=== PATIENT | female | born 1950 | race Caucasian/White ===

== ENCOUNTER 2017-09-04 12:10 | Inpatient (IN) | payer MEDICARE, OTHER ==
[~2017-09-04] VITALS: Ht 154.9 cm; Wt 80.4 kg
[2017-09-04] MEDS ORDERED: DAPS25TA2 PO (14:18)
[2017-09-04] MEDS ORDERED: DOXY100C2 PO (14:18)
--- NOTE | 2017-09-04 14:56 | ED Integumentary General ---
General Chief Complaint: Skin/Wound Problems Stated Complaint: SPIDER BITE AREA GETTING WORSE Nursing Triage Note: PT TO ED W/ C/O POSS SPIDER BITE TO LT AXILLA ONSET 2300 09/01/17. REDNESS NOTED TO AREA. DENIES ANY OTHER C/O Source: patient, spouse Exam Limitations: no limitations History of Present Illness Date Seen by Provider: Sep 04, 2017 Time Seen by Provider: 14:30 Initial Comments The patient presents to the ER by private conveyance with a chief complaint that 2 days ago she felt a sharp stinging bite-like sensation in her left axilla. She did not find the spider or bug that bit her but she had a small red pore that continue to grow throughout the day so that afternoon she went to see her primary care doctor and they looked at it and thought that it looked like cellulitis and her armpit. About 2 hours after the bite both of her feet began to turn red as well. She was started on doxycycline which she started taking that evening but threw up one dose yesterday morning. She's not having any nausea now but the redness had doubled in size so she went back to see her doctor who started her on dapsone. She did take a dose of the dapsone but after looking up the side effects she is concerned that it might cause her to become anemic. Yesterday she was also given a shot of what sounds like Rocephin. She is not having any fevers or chills or nausea presently but she is having significant pain and again the redness has doubled in size. The redness in her feet however has improved significantly. The wound is not draining anything presently. Allergies and Home Medications Allergies Coded Allergies: No Known Drug Allergies (Verified Allergy, Mild, 08/10/09) Patient Home Medication List Home Medication List Reviewed: Yes Constitutional: No chills, No diaphoresis EENTM: No ear discharge, No ear pain Respiratory: No cough, No short of breath Cardiovascular: No chest pain, No edema Gastrointestinal: No abdominal pain, No constipation, No diarrhea; nausea; No vomiting Genitourinary: No discharge, No dysuria Musculoskeletal: No back pain, No joint pain Skin: see HPI Past Aljtjrv-Vfibwl-Rmapgj Hx Patient Social History Alcohol Use: Denies Use Recreational Drug Use: No Smoking Status: Never a Smoker Recent Foreign Travel: No Contact w/Someone Who Travel: No Recent Infectious Disease Expo: No Past Medical History Surgeries: Yes (HEMORRHOIDECTOMY) Adenoidectomy, Tonsillectomy Respiratory: No Cardiac: Yes ("EXTRA BEAT" SINCE AGE 19) Neurological: No Genitourinary: No Gastrointestinal: No Musculoskeletal: No Endocrine: No HEENT: No Cancer: No Psychosocial: No Integumentary: No Physical Exam Vital Signs Vital Signs - First Documented 09/04/17 14:11 Temp 97.8 Pulse 87 Resp 18 B/P (MAP) 118/63 (81) Pulse Ox 97 O2 Delivery Room Air Capillary Refill : Less Than 3 Seconds General Appearance: WD/WN, no apparent distress HEENT: PERRL/EOMI, pharynx normal Neck: non-tender, full range of motion, supple, normal inspection Cardiovascular: normal peripheral pulses, regular rate, rhythm, no edema Respiratory: chest non-tender, lungs clear, normal breath sounds, no respiratory distress, no accessory muscle use Extremities: non-tender, normal inspection, no pedal edema, normal capillary refill Neurologic/Psychiatric: alert, normal mood/affect, oriented x 3, other ( anxious affect) Skin: other (she has an area of erythema approximately 15-20 cm diameter in her left axilla with lines drawn on it showing that it has steadily grown doubling about every day. She has a central palpable nodule area of fluctuance with a central pore that is white without any discharge. Very tender to palpation. The erythema is starting to spread to the left breast. Bilateral lower extremities are unremarkable.) Skin Problem Character: abscess, erythema Lymphatic: no adenopathy Procedures/Interventions I&D : Site: left axilla Blade Size: 11 I & D Procedure: betadine prep Progress Wound was thoroughly cleaned with chlorhexidine soap water and infiltrated with 6 cc of 2% lidocaine without epinephrine. When the patient was ascertained to be numb we use an 11 blade to make a cross cruz incision in her left axilla and explored the wound after obtaining a wound culture. No purulence was found but there were some tracks anteriorly. The wound was not packed and a light gauze dressing was placed over it catch the drainage. Progress/Results/Core Measures Results/Orders Lab Results Laboratory Tests Test 09/04/17 15:10 Range/Units White Blood Count 8.4 4.3-11.0 10^3/uL Red Blood Count 4.23 L 4.35-5.85 10^6/uL Hemoglobin 14.1 11.5-16.0 G/DL Hematocrit 38 35-52 % Mean Corpuscular Volume 90 80-99 FL Mean Corpuscular Hemoglobin 33 25-34 PG Mean Corpuscular Hemoglobin Concent 37 H 32-36 G/DL Red Cell Distribution Width 11.6 10.0-14.5 % Platelet Count 269 130-400 10^3/uL Mean Platelet Volume 8.7 7.4-10.4 FL Neutrophils (%) (Auto) 77 H 42-75 % Lymphocytes (%) (Auto) 13 12-44 % Monocytes (%) (Auto) 8 0-12 % Eosinophils (%) (Auto) 2 0-10 % Basophils (%) (Auto) 0 0-10 % Neutrophils # (Auto) 6.4 1.8-7.8 X 10^3 Lymphocytes # (Auto) 1.1 1.0-4.0 X 10^3 Monocytes # (Auto) 0.7 0.0-1.0 X 10^3 Eosinophils # (Auto) 0.2 0.0-0.3 10^3/uL Basophils # (Auto) 0.0 0.0-0.1 10^3/uL Sodium Level 136 135-145 MMOL/L Potassium Level 3.9 3.6-5.0 MMOL/L Chloride Level 104 98-107 MMOL/L Carbon Dioxide Level 21 21-32 MMOL/L Anion Gap 11 5-14 MMOL/L Blood Urea Nitrogen 13 7-18 MG/DL Creatinine 0.77 0.60-1.30 MG/DL Estimat Glomerular Filtration Rate > 60 BUN/Creatinine Ratio 17 Glucose Level 114 H 70-105 MG/DL Calcium Level 9.1 8.5-10.1 MG/DL Total Bilirubin 1.2 H 0.1-1.0 MG/DL Aspartate Amino Transf (AST/SGOT) 26 5-34 U/L Alanine Aminotransferase (ALT/SGPT) 28 0-55 U/L Alkaline Phosphatase 84 40-136 U/L Total Protein 7.7 6.4-8.2 GM/DL Albumin 4.5 3.2-4.5 GM/DL My Orders Orders - SHANNON VICENTE Cbc With Automated Diff (09/04/17 14:47) Comprehensive Metabolic Panel (09/04/17 14:47) Wound Culture (09/04/17 14:47) Vancomycin Injection (Vancomycin Injecti (09/04/17 15:00) Lidocaine 2% Injection 20 Ml (Xylocaine (09/04/17 15:00) Saline Lock/Iv-Start (09/04/17 14:47) Acetaminophen Tablet (Tylenol Tablet) (09/04/17 16:45) Medications Given in ED Current Medications Medications Dose Ordered Sig/Ezequiel Route Start Time Stop Time Status Last Admin Dose Admin Lidocaine HCl 20 ml ONCE ONCE INJ 09/04/17 15:00 09/04/17 15:01 DC 09/04/17 16:00 20 ML Vancomycin HCl 1000 mg/Sodium Chloride 250 ml @ 250 mls/hr ONCE ONCE IV 09/04/17 15:00 09/04/17 15:59 DC 09/04/17 16:24 250 MLS/HR Vital Signs/I&O 09/04/17 14:11 Temp 97.8 Pulse 87 Resp 18 B/P (MAP) 118/63 (81) Pulse Ox 97 O2 Delivery Room Air Blood Pressure Mean: 81 Progress Progress Note : Time: 14:56 Progress Note We have discussed doing incised and drained by lidocaine here in the ER versus with general surgery if she cannot tolerate the pain. We have also discussed the need for IV antibiotics. We will draw some labs and she is considering whether she wants to be in the hospital or not. Departure Communication (Admissions) Time/Spoke to Admitting Phy: 16:30 Dr. Culver; discussed case lab imaging findings and plan to treat for cellulitis with vancomycin and Unasyn. Impression Primary Impression: Abscess of axillary region Additional Impression: Cellulitis of axilla, left Disposition: 09 ADMITTED INPATIENT Condition: Stable Admissions Decision to Admit Reason: Admit from ER (General) Decision to Admit/Date: Sep 04, 2017 Time/Decision to Admit Time: 16:29 Departure-Patient Inst. Referrals: ALLYSSA MITCHELL MD, KATHLEEN M MD (PCP/Family) Primary Care Physician Copy Copies To 1: ALLYSSA MITCHELL MD, TITUS J Sep 04, 2017 14:56
[2017-09-04] MEDS ORDERED: LIDOCAINE 2% 20 ML (XYLOCAINE) VIAL INJ ONE (15:00)
[2017-09-04] MEDS ORDERED: VANCOMYCIN INJECTION 1,000 MG in NS (IVPB) 250 ML IV ONE (15:00)
[2017-09-04 15:22] LABS: BASOPHILS % (AUTO) 0 % (0-10); EOSINOPHILS # (AUTO) 0.2 10^3/uL (0.0-0.3); EOSINOPHILS % (AUTO) 2 % (0-10); HEMATOCRIT 38 % (35-52); HEMOGLOBIN 14.1 G/DL (11.5-16.0); LYMPHOCYTES # (AUTO) 1.1 X 10^3 (1.0-4.0); LYMPHOCYTES % (AUTO) 13 % (12-44); MEAN CORPUSCULAR HEMOGLOBIN 33 PG (25-34); MEAN CORPUSCULAR HGB CONC 37 G/DL (32-36); MEAN CORPUSCULAR VOLUME 90 FL (80-99); MEAN PLATELET VOLUME 8.7 FL (7.4-10.4); MONOCYTES # (AUTO) 0.7 X 10^3 (0.0-1.0); MONOCYTES % (AUTO) 8 % (0-12); NEUTROPHILS # (AUTO) 6.4 X 10^3 (1.8-7.8); NEUTROPHILS % (AUTO) 77 % (42-75); PLATELET COUNT 269 10^3/uL (130-400); RED BLOOD COUNT 4.23 10^6/uL (4.35-5.85); RED CELL DISTRIBUTION WIDTH 11.6 % (10.0-14.5); WHITE BLOOD COUNT 8.4 10^3/uL (4.3-11.0)
[2017-09-04 15:39] LABS: ALANINE AMINOTRANSFERASE 28 U/L (0-55); ALBUMIN 4.5 GM/DL (3.2-4.5); ALKALINE PHOSPHATASE 84 U/L (40-136); BILIRUBIN,TOTAL 1.2 MG/DL (0.1-1.0); BUN/CREATININE RATIO 17; CALCIUM 9.1 MG/DL (8.5-10.1); CARBON DIOXIDE 21 MMOL/L (21-32); CHLORIDE 104 MMOL/L (98-107); CREATININE SERUM 0.77 MG/DL (0.60-1.30); GFR ESTIMATED > 60; GLUCOSE 114 MG/DL (70-105); POTASSIUM 3.9 MMOL/L (3.6-5.0); SODIUM 136 MMOL/L (135-145); TOTAL PROTEIN 7.7 GM/DL (6.4-8.2)
[2017-09-04] MEDS ORDERED: ACETAMINOPHEN 500 MG TAB (TYLENOL) PO ONE (16:45)
[2017-09-04] MEDS ORDERED: ONDANSETRON 4 MG/2 ML (SDV) Z0FRAN IVP PRN (18:00)
[2017-09-04] MEDS ORDERED: IBUPROFEN 800 MG (MOTRIN) TAB PO PRN (18:00)
[2017-09-04] MEDS ORDERED: LORATADINE (CLARITIN) 10 MG TAB PO PRN (18:00)
[2017-09-04] MEDS ORDERED: ACETAMINOPHEN 500 MG TAB (TYLENOL) PO PRN (18:00)
[2017-09-04 20:00] VITALS: BP 121/58
[2017-09-04] MEDS: AMPICILLIN/SULBACTAM INJECTION 3 GM in NS (IVPB) 100 ML IV SCH (20:56)
[2017-09-05] VITALS (7 sets, daily range): BP systolic 95–139; BP diastolic 55–65
[2017-09-05] MEDS: AMPICILLIN/SULBACTAM INJECTION 3 GM in NS (IVPB) 100 ML IV SCH ×2 (02:32→09:05)
[2017-09-05 07:06] LABS: BASOPHILS % (AUTO) 0 % (0-10); EOSINOPHILS # (AUTO) 0.3 10^3/uL (0.0-0.3); EOSINOPHILS % (AUTO) 4 % (0-10); HEMATOCRIT 37 % (35-52); HEMOGLOBIN 12.7 G/DL (11.5-16.0); LYMPHOCYTES % (AUTO) 17 % (12-44); MEAN CORPUSCULAR HEMOGLOBIN 32 PG (25-34); MEAN CORPUSCULAR HGB CONC 35 G/DL (32-36); MEAN CORPUSCULAR VOLUME 91 FL (80-99); MEAN PLATELET VOLUME 9.2 FL (7.4-10.4); MONOCYTES # (AUTO) 0.7 X 10^3 (0.0-1.0); MONOCYTES % (AUTO) 11 % (0-12); NEUTROPHILS % (AUTO) 68 % (42-75); PLATELET COUNT 277 10^3/uL (130-400); RED BLOOD COUNT 4.03 10^6/uL (4.35-5.85); RED CELL DISTRIBUTION WIDTH 11.8 % (10.0-14.5)
[2017-09-05 07:23] LABS: BUN/CREATININE RATIO 16; CALCIUM 8.8 MG/DL (8.5-10.1); CARBON DIOXIDE 24 MMOL/L (21-32); CHLORIDE 107 MMOL/L (98-107); CREATININE SERUM 0.77 MG/DL (0.60-1.30); GFR ESTIMATED > 60; GLUCOSE 97 MG/DL (70-105); POTASSIUM 3.8 MMOL/L (3.6-5.0); SODIUM 141 MMOL/L (135-145)
[2017-09-05] MEDS ORDERED: CATHETER FLUSH 10 ML SYR IV PRN (09:00)
[2017-09-05] MEDS ORDERED: VANCOMYCIN 1500 MG/NS 500 ML IVPB IV NR ×2 (09:00)
[2017-09-05] MEDS: CATHETER FLUSH 10 ML SYR IV SCH ×2 (09:05→21:50)
--- NOTE | 2017-09-05 11:18 | History & Physical-Hospitalist ---
History of Present Illness HPI/Chief Complaint Mrs. Villar 66-year-old white female who was woken from sleep 3 nights ago with a stinging sensation below the left axilla. It had a sensation as though she had been bitten she her clothes off and was not able to fine any evidence for insect or spider but noted progressive erythema followed by the formation of a knot. It was initially itchy and then became tender. She went to her primary care provider initially her nurse practitioner and then seen by Dr. Nelson as well at which time doxycycline and dapsone were initiated. She had several doses of doxycycline but did vomit 1 dose up yesterday with no reported nausea today. She is noted progressive expanding areas of erythema and increased not worse symptoms began below the left axilla. The following morning she also noticed significant erythema of both feet but not reportedly hands that was not itchy. She denies chills fever or weakness. She's also had no night sweats. She's not aware of any known allergies to medications or insects. She reports no past history of known spider bites. In the emergency room she underwent incision there was no reported purulent drainage obtained there was a report of a sinus tract. Cultures were obtained. Currently she reports mild discomfort at the site of the incision and drainage only with no reported itching and reporting resolution of foot symptoms and erythema. Date Seen 09/05/17 Time Seen by Provider: 09:45 Attending Physician Minda Culver MD PCP Yecenia NELSON M.D. Referring Physician Date of Admission Sep 04, 2017 at 16:58 Home Medications & Allergies Home Medications Reviewed patient Home Medication Reconciliation performed by pharmacy medication reconciliations hvac refrigeration technician and/or nursing. Patients Allergies have been reviewed. Allergies Allergies Coded Allergies No Known Drug Allergies (Verified09/04/17) Past Emitjfc-Llwwlf-Unmpru Hx Past Med/Social Hx: Reviewed and Corrections made Patient Social History Alcohol Use: Denies Use Recreational Drug Use: No Smoking Status: Never a Smoker Physical Abuse Screen: No Sexual Abuse: No Recent Foreign Travel: No Contact w/other who traveled: No Recent Infectious Disease Expo: No Seasonal Allergies Seasonal Allergies: No Past Medical History Surgeries: Adenoidectomy, Tonsillectomy Review of Systems Constitutional: no symptoms reported, see HPI Respiratory: no symptoms reported; No cough, No dyspnea on exertion, No hemoptysis, No orthopnea, No phlegm, No short of breath, No wheezing Cardiovascular: no symptoms reported; No chest pain, No edema, No Hx of Intervention, No palpitations, No syncope, No vascular heart diseas, No other Physical Exam Physical Exam Vital Signs Vital Signs - First Documented 09/04/17 14:11 Temp 97.8 Pulse 87 Resp 18 B/P (MAP) 118/63 (81) Pulse Ox 97 O2 Delivery Room Air Capillary Refill : Less Than 3 Seconds General Appearance: No Apparent Distress, Anxious, Obese HEENT: Pharynx Normal Neck: Full Range of Motion, Normal Inspection, Non Tender, Supple, Carotid Bruit Respiratory: Chest Non Tender, Lungs Clear, Normal Breath Sounds, No Accessory Muscle Use, No Respiratory Distress Cardiovascular: Regular Rate, Rhythm, No Edema, No Gallop, No JVD, No Murmur, Normal Peripheral Pulses Extremity: Normal Capillary Refill, Normal Inspection, Normal Range of Motion, Non Tender, No Calf Tenderness, No Pedal Edema Neurologic/Psychiatric: Alert, Oriented x3 Skin: Other (Below the left axilla there is a small puncture wound with surrounding erythema. There is minimal if any induration and there is no evidence to suggest necrosis. There is a large area of serpiginous erythema but without induration and minimal tenderness expanding over the lateral aspect of the left breast and over the left lateral thorax feet reveal no evidence for erythema significantly improved from pictures the patient had on her phone.) Results Results/Procedures Labs Laboratory Tests 09/04/17 15:10 09/05/17 05:57 Patient resulted labs reviewed. Assessment/Plan Admission Diagnosis A/P 1. Favor allergic reaction to an insect bite possible brown recluse over infectious etiology. Bilateral foot erythema currently resolved most likely part of an allergic response. We'll add Claritin. Patient does not have any of the other usual symptomatology to suggest infection such as induration and pain over the area of erythema chills fever or white count with no evidence for any axillary adenopathy. The fact that incision and drainage did not produce any purulent material also speaks against staph infection. We will however continue vancomycin for now. Now getting in today for without any evidence for tissue necrosis is a good sign for this patient. 2. Significant situational anxiety tried to reassure the patient that for the above reasons staph infection is less likely and even if this is a brown recluse bite she is not exhibiting evidence for any significant tissue necrosis at this time. We'll continue to monitor. Admission Status: Inpatient Order (span 2 midnights) Reason for Inpatient Admission: See admission diagnosis Clinical Quality Measures DVT/VTE Risk/Contraindication: Risk Factor Score Per Nursin RFS Level Per Nursing on Admit: 3=High MINDA CULVER MD Sep 05, 2017 11:18
[2017-09-05] MEDS ORDERED: methylPREDNISolone 125 MG (Solu-MEDROL) VIAL IVP NR (12:00)
[2017-09-05] MEDS ORDERED: diphenhydrAMINE 25 MG TAB (BENADRYL) PO NR (12:00)
[2017-09-05] MEDS ORDERED: VANCOMYCIN 1250 MG/NS 250 ML IVPB IV SCH ×2 (20:45)
[2017-09-06 06:44] LABS: BASOPHILS % (AUTO) 0 % (0-10); EOSINOPHILS % (AUTO) 0 % (0-10); HEMATOCRIT 35 % (35-52); HEMOGLOBIN 12.6 G/DL (11.5-16.0); LYMPHOCYTES # (AUTO) 1.3 X 10^3 (1.0-4.0); LYMPHOCYTES % (AUTO) 13 % (12-44); MEAN CORPUSCULAR HEMOGLOBIN 33 PG (25-34); MEAN CORPUSCULAR HGB CONC 36 G/DL (32-36); MEAN CORPUSCULAR VOLUME 91 FL (80-99); MEAN PLATELET VOLUME 9.1 FL (7.4-10.4); MONOCYTES # (AUTO) 0.7 X 10^3 (0.0-1.0); MONOCYTES % (AUTO) 7 % (0-12); NEUTROPHILS % (AUTO) 80 % (42-75); PLATELET COUNT 278 10^3/uL (130-400); RED BLOOD COUNT 3.88 10^6/uL (4.35-5.85); RED CELL DISTRIBUTION WIDTH 11.5 % (10.0-14.5); WHITE BLOOD COUNT 10.1 10^3/uL (4.3-11.0)
[2017-09-06 08:14] VITALS: BP 118/61
[2017-09-06] MEDS: CATHETER FLUSH 10 ML SYR IV SCH ×3 (08:17→22:54)
[2017-09-06] MEDS ORDERED: VANCOMYCIN 1250 MG/NS 250 ML IVPB IV SCH ×2 (09:00)
[2017-09-06] MEDS ORDERED: ASCO500T5 PO (11:14)
[2017-09-06] MEDS: DOXYCYCLINE INJECTION 100 MG in NS (IVPB) 100 ML IV SCH ×2 (11:34→23:00)
[2017-09-06 16:00] VITALS: BP 121/61
--- NOTE | 2017-09-06 18:41 | Progress Note ---
Subjective Date Seen by Provider: Sep 06, 2017 Time Seen by Provider: 18:30 Subjective/Events-last exam PT PRESENTED TO THE OFFICE LAST WEDNESDAY WITH A SPIDER BITE THE EVENING PRIOR, SHE WAS STARTED ON ANTIBIOTICS, AND APPARENTLY HER SYMPTOMS WORSENED AND SHE PRESENTED TO THE EMERGENCY DEPARTMENT AND TODAY SHE IS REPORTING THAT SHE IS FEELING BETTER. EXCEPT FOR ERYTHEMA OF ARMS, AND WELTS AROUND INSECT BITE. Review of Systems General: No Fatigue Pulmonary: No Dyspnea Cardiovascular: No: Chest Pain, Palpitations Gastrointestinal: No: Nausea, Abdominal Pain Neurological: No: Weakness, Confusion ERYTHEMA AROUND INCISION SITE, ARMS/LEGS Objective Exam Last Set of Vital Signs Vital Signs Date Time Temp Pulse Resp B/P (MAP) Pulse Ox O2 Delivery O2 Flow Rate FiO2 09/06/17 16:00 97.8 83 18 121/61 (81) 95 Room Air Capillary Refill : Less Than 3 Seconds I&O Intake and Output 09/06/17 00:00 Intake Total 3550 ml Output Total 3700 ml Balance -150 ml Intake Oral 3100 ml IV Total 450 ml Output Urine Total 3700 ml # Bowel Movements 1 General: Alert, Oriented X3, Cooperative HEENT: Atraumatic Lungs: Clear to Auscultation Heart: Regular Rate Abdomen: Normal Bowel Sounds, Soft Skin: Other (WELTS AROUND ARMS, CHEST WALL ON LEFT LATERAL CHEST) Psych/Mental Status: Mental Status NL, Mood NL Results Lab Laboratory Tests 09/06/17 06:20: White Blood Count 10.1, Red Blood Count 3.88L, Hemoglobin 12.6, Hematocrit 35, Mean Corpuscular Volume 91, Mean Corpuscular Hemoglobin 33, Mean Corpuscular Hemoglobin Concent 36, Red Cell Distribution Width 11.5, Platelet Count 278, Mean Platelet Volume 9.1, Neutrophils (%) (Auto) 80H, Lymphocytes (%) (Auto) 13 , Monocytes (%) (Auto) 7, Eosinophils (%) (Auto) 0, Basophils (%) (Auto) 0, Neutrophils # (Auto) 8.0H, Lymphocytes # (Auto) 1.3, Monocytes # (Auto) 0.7, Eosinophils # (Auto) 0.0, Basophils # (Auto) 0.0 Microbiology 09/04/17 Gram Stain - Final, Resulted 09/04/17 Wound Culture - Preliminary, Resulted No growth Assessment/Plan Assessment/Plan Assess & Plan/Chief Complaint INSECT BITE ERYTHEMA OF SKIN MEDICATION REACTION CONTINUE WITH DOXYCYCLINE, GIVE DOSE OF SOLUMEDROL, PEPCID AND CLARITIN, MONITOR REACTION, LIKELY WILL BE ABLE TO DISCHARGE TOMORROW. Clinical Quality Measures DVT/VTE Risk/Contraindication: Risk Factor Score Per Nursin RFS Level Per Nursing on Admit: 3=High ALLYSSA MITCHELL MD Sep 06, 2017 18:41
[2017-09-06] MEDS ORDERED: methylPREDNISolone 40 MG/ML (Solu-MEDROL) VIAL IV NR (18:45)
--- NOTE | 2017-09-06 20:42 | Consultation ---
History of Present Illness History of Present Illness Patient Consulted On(eunice/time) 09/06/17 20:37 Date Seen by Provider: Sep 06, 2017 Time Seen by Provider: 12:36 History of Present Illness Consult requested by Dr. Nelson for insect bite Patient is a 66-year-old female who states that she was bit last by an insect. Patient did not see any insect but felt a stinging and soon afterward started noticing some erythema along the left side of her body and onto her left breast. The area was extremely itchy she states. She was started on antibiotics and dapsone. This continued to worsen through the weekend and then also went to the emergency department which she subsequently was admitted. Patient states that she start having significant erythema and pruritic feeling at her bilateral feet with significant erythema of her toes. She did not have any involvement of her hands. She had a couple other welts area patient was her to make a myosin and had a significant reaction causing erythema to the chest abdomen and back and face. This was discontinued and had improvement. Patient was then turned on doxycycline which she states since being started on doxycycline she's been doing significant better. She still has some erythematous changes that have slightly worsened of the left chest and breast but overall feeling better. She has not had anything like this before. She denies any nausea vomiting fever sweats chills shortness of breath or chest pain at this time. She a few days ago did have some vomiting but none since. Patient also noting an area that did get a little bit firm where she thought she was initially bit which in the emergency room they did try an incision and drainage but did not have any productive purulent material but did seem to have a small sinus tract she states. Allergies and Home Medications Allergies Coded Allergies: vancomycin (Verified Allergy, Mild, 09/06/17) ITCHING FEELS HOT Home Medications Ascorbic Acid 500 Mg Tab.chew, 500 MG PO DAILY PRN for SICK, (Reported) Dapsone 25 Mg Tablet, 50 MG PO 1200, (Reported) FILLED #10 09-02-17 TAKES 2 (25MG) TABLETS Doxycycline Hyclate 100 Mg Capsule, 100 MG PO BID, (Reported) #20 CAPSULES FILLED 09-02-17 Patient Home Medication List Home Medication List Reviewed: Yes Past Hxdtzev-Xtknrp-Xmlvfe Hx Patient Social History Alcohol Use: Denies Use Recreational Drug Use: No Smoking Status: Never a Smoker Recent Foreign Travel: No Contact w/Someone Who Travel: No Recent Infectious Disease Expo: No Physical Abuse Screen: No Sexual Abuse: No Seasonal Allergies Seasonal Allergies: No Surgeries History of Surgeries: Yes (HEMORRHOIDECTOMY) Surgeries: Adenoidectomy, Tonsillectomy Respiratory History of Respiratory Disorde: No Cardiovascular History of Cardiac Disorders: Yes ("EXTRA BEAT" SINCE AGE 19) Neurological History of Neurological Disord: No Genitourinary History of Genitourinary Disor: No Gastrointestinal History of Gastrointestinal Di: No Musculoskeletal History of Musculoskeletal Dis: No Endocrine History of Endocrine Disorders: No HEENT History of HEENT Disorders: No Cancer History of Cancer: No Psychosocial History of Psychiatric Problem: No Integumentary History of Skin or Integumenta: No Family Medical History Significant Family History: No Pertinent Family Hx Review of Systems-General Constitutional: no symptoms reported EENTM: no symptoms reported Respiratory: no symptoms reported Cardiovascular: no symptoms reported Genitourinary: no symptoms reported Musculoskeletal: no symptoms reported Skin: see HPI, change in color, pruritus Psychiatric/Neurological: No Symptoms Reported Physical Exam-General Problems Physical Exam Vital Signs Vital Signs - First Documented 09/04/17 14:11 Temp 97.8 Pulse 87 Resp 18 B/P (MAP) 118/63 (81) Pulse Ox 97 O2 Delivery Room Air Capillary Refill : Less Than 3 Seconds General Appearance: no apparent distress HEENT: PERRL/EOMI, normal ENT inspection Neck: supple Respiratory: no respiratory distress, no accessory muscle use Cardiovascular: regular rate, rhythm Gastrointestinal: non tender, soft Back: no CVA tenderness, no vertebral tenderness Extremities: non-tender, normal inspection Neurologic/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 Small scab where previous incision drainage attempted) Lymphatic: no adenopathy Data Review Labs Laboratory Tests 09/06/17 06:20: White Blood Count 10.1, Red Blood Count 3.88L, Hemoglobin 12.6, Hematocrit 35, Mean Corpuscular Volume 91, Mean Corpuscular Hemoglobin 33, Mean Corpuscular Hemoglobin Concent 36, Red Cell Distribution Width 11.5, Platelet Count 278, Mean Platelet Volume 9.1, Neutrophils (%) (Auto) 80H, Lymphocytes (%) (Auto) 13 , Monocytes (%) (Auto) 7, Eosinophils (%) (Auto) 0, Basophils (%) (Auto) 0, Neutrophils # (Auto) 8.0H, Lymphocytes # (Auto) 1.3, Monocytes # (Auto) 0.7, Eosinophils # (Auto) 0.0, Basophils # (Auto) 0.0 Microbiology 09/04/17 Gram Stain - Final, Resulted 09/04/17 Wound Culture - Preliminary, Resulted No growth Assessment/Plan Assessment/Plan Assessment/Plan INSECT BITE ERYTHEMA OF SKIN MEDICATION REACTION NO SURGICAL INTERVENTION NEEDED AT THIS TIME. WOULD CONTINUE WITH THE doxycycline ,Claritin and Pepcid as this could be allergic reaction as well as insect bite. We'll continue to monitor along. Overall patient states that she is improving. If any change patient to be reevaluated at that time. Clinical Quality Measures DVT/VTE Risk/Contraindication: Risk Factor Score Per Nursin RFS Level Per Nursing on Admit: 3=High PIERRE MAK DO Sep 06, 2017 20:42
[2017-09-06] MEDS ORDERED: FAMOTIDINE 20MG/2ML IV (PEPCID) IVP SCH (21:00)
[2017-09-06] MEDS ORDERED: LORATADINE (CLARITIN) 10 MG TAB PO SCH (21:00)
[2017-09-06] MEDS: diphenhydrAMINE 2% 30 GM CR (ALLERGY CREAM) TOP SCH (22:54)
[2017-09-06] MEDS: raNItidine 50 MG/2 ML INJ (ZANTAC) IV SCH (22:54)
[2017-09-06] MEDS: LORATADINE (CLARITIN) 10 MG TAB PO SCH (22:59)
[2017-09-06] MEDS ORDERED: LORATADINE (CLARITIN) 10 MG TAB ONE (22:59)
[2017-09-07] VITALS: BP 120/65
[2017-09-07] MEDS: CATHETER FLUSH 10 ML SYR IV SCH (06:06)
[2017-09-07 08:00] VITALS: BP 108/59
[2017-09-07] MEDS ORDERED: TROUGH ORDER-PHARMACY XX NR (08:00)
--- NOTE | 2017-09-07 08:49 | Discharge Summary ---
Diagnosis/Chief Complaint Date of Admission Sep 06, 2017 at 13:37 Date of Discharge Discharge Date: Sep 07, 2017 Discharge Time: 08:45 Admission Diagnosis Admission Diagnosis INSECT BITE ERYTHEMA OF SKIN MEDICATION REACTION Discharge Diagnosis INSECT BITE ERYTHEMA OF SKIN MEDICATION REACTION Reason Hospital Visit Mrs. Villar 66-year-old white female who was woken from sleep 3 nights ago with a stinging sensation below the left axilla. It had a sensation as though she had been bitten she her clothes off and was not able to fine any evidence for insect or spider but noted progressive erythema followed by the formation of a knot. It was initially itchy and then became tender. She went to her primary care provider initially her nurse practitioner and then seen by Dr. Nelson as well at which time doxycycline and dapsone were initiated. She had several doses of doxycycline but did vomit 1 dose up yesterday with no reported nausea today. She is noted progressive expanding areas of erythema and increased not worse symptoms began below the left axilla. The following morning she also noticed significant erythema of both feet but not reportedly hands that was not itchy. She denies chills fever or weakness. She's also had no night sweats. She's not aware of any known allergies to medications or insects. She reports no past history of known spider bites. In the emergency room she underwent incision there was no reported purulent drainage obtained there was a report of a sinus tract. Cultures were obtained. Currently she reports mild discomfort at the site of the incision and drainage only with no reported itching and reporting resolution of foot symptoms and erythema. Discharge Summary Consultations DR MAK Discharge Physical Examination Allergies: Coded Allergies: vancomycin (Verified Allergy, Mild, 09/06/17) ITCHING FEELS HOT Vitals & I&Os Vital Signs Date Time Temp Pulse Resp B/P (MAP) Pulse Ox O2 Delivery O2 Flow Rate FiO2 09/07/17 08:00 98.1 74 18 108/59 (75) 97 Room Air General Appearance: Alert, Oriented X3, Cooperative HEENT: Atraumatic Respiratory: Clear to Auscultation Cardiovascular: Regular Rate Abdominal: Normal Bowel Sounds, Soft Skin: Other (WELTS AROUND ARMS, CHEST WALL ON LEFT LATERAL CHEST, DUSKY AREA SPREADING FROM EDGE OF SPIDER BITE ABOUT 1CM AT THE 9 OCLOCK POSITION FROM THE SPIDER BITE) Psych/Mental Status: Mental Status NL, Mood NL Hospital Course INSECT BITE ERYTHEMA OF SKIN MEDICATION REACTION CONTINUE WITH DOXYCYCLINE, GAVE DOSE OF SOLUMEDROL, PEPCID AND CLARITIN, MONITORED REACTION - IMPROVED ERYTHEMA ALONG LEFT AXILLA AND FLANK. DISCUSSED WITH DR. MAK TODAY - HE AGREES THAT PT NEEDS TO CONTINUE WITH DAPSONE, DOXYCYCLINE FOR TREATMENT OF SPIDER BITE AND THE PEPCID AND CLARITIN ORALLY AND BENADRYL TOPICALLY FOR ALLERGIC RESPONSE TO THE SPIDER BITE. PT TO BE SEEN IN DR. LAUREN OFFICE ON WEDNESDAY OF THIS WEEK AND IN MY OFFICE EARLY NEXT WEEK FOR HOSPITAL FOLLOW UP. Pending Labs Laboratory Tests 09/07/17 08:05: Vancomycin Level Trough [Pending] Discharge Condition at discharge IMPROVING Instructions to patient/family Please see electronic discharge instructions given to patient. Discharge Medications Reviewed and agree with Discharge Medication list on patient's Discharge Instruction sheet Medication List: Active Scripts Active Itch Relief Cream (Diphenhydramine HCl/Zinc Acet) 28 Gm Cream..g. 0 Gm TOP TID USE TUBE FROM HOSPITAL - APPLY TO SKIN TISSUE TID AND PRN ITCHING Pepcid AC (Famotidine) 20 Mg Tablet 20 Mg PO BID Loratadine 10 Mg Tablet 10 Mg PO BID Reported Vitamin C (Ascorbic Acid) 500 Mg Tab.chew 500 Mg PO DAILY PRN Dapsone 25 Mg Tablet 50 Mg PO 1200 FILLED #10 09-02-17 TAKES 2 (25MG) TABLETS Doxycycline Hyclate 100 Mg Capsule 100 Mg PO BID #20 CAPSULES FILLED 09-02-17 Clinical Quality Measures DVT/VTE Risk/Contraindication: Risk Factor Score Per Nursin RFS Level Per Nursing on Admit: 3=High ALLYSSA NELSON MD Sep 07, 2017 08:49
[2017-09-07] MEDS ORDERED: FAMO20TA45 PO (08:53)
[2017-09-07] MEDS ORDERED: DIPH28CR5 TOP (08:53)
[2017-09-07] MEDS ORDERED: LORA10TA7 PO (08:53)
--- NOTE | 2017-09-07 08:56 | Discharge Inst-Complex ---
PDI Med Rec & Follow Up Appt. New Medications: Famotidine (Pepcid AC) 20 Mg Tablet 20 MG PO BID, #20 TAB Diphenhydramine HCl/Zinc Acet (Itch Relief Cream) 28 Gm Cream..g. 0 GM TOP TID, #1 TUBE USE TUBE FROM HOSPITAL - APPLY TO SKIN TISSUE TID AND PRN ITCHING Loratadine (Loratadine) 10 Mg Tablet 10 MG PO BID, #10 TAB Continued Medications: Ascorbic Acid (Vitamin C) 500 Mg Tab.chew 500 MG PO DAILY PRN for SICK, TAB Dapsone (Dapsone) 25 Mg Tablet 50 MG PO 1200, TAB FILLED #10 09-02-17 TAKES 2 (25MG) TABLETS Doxycycline Hyclate (Doxycycline Hyclate) 100 Mg Capsule 100 MG PO BID, CAP #20 CAPSULES FILLED 09-02-17 Prescription: Transmitted to Pharmacy Patient Instructions: FOLLOW UP WITH DR. MAK ON WEDNESDAY IN HIS OFFICE FOLLOW UP WITH [facility] IN 1 WK FROM DISCHARGE CALL [facility] IF THE DARKENED AREA ACUTELY CHANGES/ENLARGES HE WILL NEED TO PERFORM SURGERY TO REMOVE THE NECROTIC TISSUE Activity, Diet and PDI Resume Normal Activity: Yes Discharge Diet: Regular Diet Diet After 24 Hours: Clear Liquid if Nauseous Drink 6-8 Glasses of Fluid/Day: Yes Driving Instructions: You May Drive May Return to Work/School/Day: May Return to Work ( ON 09/09/17) Return to The Hospital For: ANY CONCERN FOR LIFETHREATENING ILLNESS OR INJURY OR ACUTE WORSENING OF THE SPIDER BITE Symptoms to Reoprt to : Appetite Changes, Numbness/Tingling, Swelling Increased, Fever Over 101 Degrees F, Diarrhea(Persistant), Dizziness/Fainting, Nausea/Vomiting For Problems or Questions: Contact Your Physician, Go to Emergency Room ALLYSSA MITCHELL MD Sep 07, 2017 08:56
[2017-09-07] MEDS ORDERED: LORATADINE (CLARITIN) 10 MG TAB PO SCH (09:00)
[2017-09-07] MEDS: LORATADINE (CLARITIN) 10 MG TAB PO SCH (09:22)
[2017-09-07] MEDS: diphenhydrAMINE 2% 30 GM CR (ALLERGY CREAM) TOP SCH (09:23)
[2017-09-07] MEDS: DOXYCYCLINE INJECTION 100 MG in NS (IVPB) 100 ML IV SCH (09:30)
[2017-09-07] MEDS: raNItidine 50 MG/2 ML INJ (ZANTAC) IV SCH (09:30)
[2017-09-07 10:00] VITALS: BP 108/59
--- NOTE | 2017-09-07 15:36 | Progress Note ---
Subjective Date Seen by Provider: Sep 07, 2017 Time Seen by Provider: 08:21 Subjective/Events-last exam Feeling about the same with rash on left side of chest and breast. Patient has had no further increase in size. Less intensity. Still itchy but not as bad. No drainage. Denies n/v fever sweats chills shortness of breath or chest pain. Objective Exam Vital Signs Date Time Temp Pulse Resp B/P (MAP) Pulse Ox O2 Delivery O2 Flow Rate FiO2 09/07/17 10:00 74 18 108/59 97 Room Air 09/07/17 08:00 98.1 74 18 108/59 (75) 97 Room Air 09/07/17 00:00 98.4 79 18 120/65 (83) 94 Room Air 09/06/17 16:00 97.8 83 18 121/61 (81) 95 Room Air I & O 09/07/17 07:00 Intake Total 2060 ml Output Total 3300 ml Balance -1240 ml Capillary Refill : Less Than 3 Seconds General Appearance: No Apparent Distress, Anxious, Obese HEENT: Pharynx Normal Neck: Full Range of Motion, Non Tender, Supple Respiratory: Normal Breath Sounds, No Accessory Muscle Use, No Respiratory Distress Cardiovascular: Regular Rate, Rhythm Gastrointestinal: non tender, soft Extremity: Normal Capillary Refill, Normal Inspection, Normal Range of Motion, Non Tender, No Calf Tenderness, No Pedal Edema Neurologic/Psychiatric: Alert, Oriented x3, Normal Mood/Affect Skin: Other (Below the left axilla there is a small puncture wound with surrounding erythema. There is minimal if any induration and there is no evidence to suggest necrosis. Erythema but without induration and minimal tenderness expanding over the lateral aspect of the left breast and over the left lateral chest, slight purple hue around i and d site) Results Lab Laboratory Tests 09/07/17 08:05: Vancomycin Level Trough < 0.4L Microbiology 09/04/17 Gram Stain - Final, Resulted 09/04/17 Wound Culture - Preliminary, Resulted No growth Assessment/Plan Assessment/Plan Assessment/Plan INSECT BITE ERYTHEMA OF SKIN MEDICATION REACTION NO SURGICAL INTERVENTION NEEDED AT THIS TIME. WOULD CONTINUE WITH THE doxycycline ,Claritin and Pepcid as this could be allergic reaction as well as insect bite. overall improving, would continue on dapsone if tolerates. okay to follow up outpatient Clinical Quality Measures DVT/VTE Risk/Contraindication: Risk Factor Score Per Nursin RFS Level Per Nursing on Admit: 3=High PIERRE MAK DO Sep 07, 2017 15:36
[2017-09-07] MEDS ORDERED: FAMOTIDINE 20 MG (PEPCID) TABLET PO SCH (21:00)
== END 2017-09-07 10:00 | disposition home or self-care (01) | DRG 918 ==
LOC: EDUNIT# 12:10 → ER 12:13 → UNDOADMOB 16:58 → 4TH 16:58 → OBSVTOIN 09-06 13:30 → INTOOBSV 09-06 13:37 → EDPENDDISTM 09-07 09:30 → UNDODISIN 09-07 10:00
PROVIDERS: ADMIT Internal Medicine; ATTEND Family Medicine
PROC: 0XJ53ZZ Inspection of Left Axilla, Percutaneous Approach (ICD-10-PCS; principal; 2017-09-04)
DX: T63.331A Toxic effect of venom of brown recluse spider, accidental (unintentional), initial encounter (principal); L03.112 Cellulitis of left axilla; T78.40XA Allergy, unspecified, initial encounter; L53.8 Other specified erythematous conditions; R21 Rash and other nonspecific skin eruption; F41.9 Anxiety disorder, unspecified; E66.9 Obesity, unspecified; Z68.33 Body mass index [BMI] 33.0-33.9, adult
CPT/HCPCS: 10060; 36415; 80048; 80053; 80202; 85025; 87070; 87205; G0378

== ENCOUNTER → 2021-09-11 | Outpatient (CLI) | payer MEDICARE, OTHER ==
[~2021-09-11] MED LIST: ACHD5005 PO; ASCO500T71 PO; DAPS25TA2 PO; DIPH28CR5 TOP; DOCU-143 PO; DOXY100C5 PO; FAMO20TA45 PO; LORA10TA7 PO; ONDA4TAB11 PO; POLY17PO6 PO; TMSL.4C PO
--- NOTE | 2021-09-11 09:56 | Diagnostic Imaging Report ---
INDICATION: Left ureteral stone. TIME OF EXAM: 9:45 AM. COMPARISON: No prior studies are available for comparison. FINDINGS: A single view of the abdomen does show a calcific density overlying the left transverse process of L4 measuring 9 mm, suggestive of a ureteral calculus. No other radiopaque urinary tract calculi are seen. The bowel gas pattern is unremarkable. IMPRESSION: Probable left ureteral calculus at the level of L4, as described. Dictated by: Dictated on workstation # [id number]
== END ==
LOC: RAD 09:18
PROVIDERS: ATTEND Urology
DX: N20.1 Calculus of ureter (principal)
CPT/HCPCS: 74018

== ENCOUNTER 2021-09-12 05:28 | Outpatient (CLI) | payer MEDICARE, OTHER ==
[~2021-09-12] VITALS: Ht 152.4 cm; Wt 76.4 kg
[~2021-09-12 05:28] MED LIST changes: -ACHD5005 PO; -DOCU-143 PO; -ONDA4TAB11 PO; -POLY17PO6 PO; -TMSL.4C PO
[2021-09-12] MEDS ORDERED: POLY17PO6 PO (13:53)
[2021-09-12] MEDS ORDERED: TMSL.4C PO (13:53)
[2021-09-12] MEDS ORDERED: ACHD5005 PO (13:53)
[2021-09-12] MEDS ORDERED: ONDA4TAB11 PO (13:53)
[2021-09-12] MEDS ORDERED: DOCU-143 PO (13:53)
== END 2021-09-12 13:56 | disposition home or self-care (01) ==
LOC: PREOP 05:28
PROVIDERS: ATTEND Urology
DX: Z01.818 Encounter for other preprocedural examination (principal)

== ENCOUNTER → 2021-09-23 | Outpatient (CLI) | payer MEDICARE, OTHER ==
[~2021-09-23] MED LIST changes: +ACHD5005 PO; +DOCU-143 PO; +ONDA4TAB11 PO; +POLY17PO6 PO; +TMSL.4C PO
== END | disposition home or self-care (01) ==
LOC: PREOP 05:36
PROVIDERS: ATTEND Urology
DX: Z01.818 Encounter for other preprocedural examination (principal)

== ENCOUNTER 2021-09-30 06:31 | Day surgery (SDC) | payer MEDICARE, OTHER ==
[~2021-09-30] VITALS: Ht 152.4 cm; Wt 70.1 kg
[2021-09-30] VITALS (11 sets, daily range): BP systolic 110–131; BP diastolic 53–72
[2021-09-30] MEDS ORDERED: AZIT250T PO (06:44)
[2021-09-30] MEDS ORDERED: cefTRIAXone 1 GM PRE-MIX 50 ML IV ONE (06:45)
[2021-09-30] MEDS: LACTATED RINGERS 1,000 ML IV PRN ×2 (07:07→08:10)
[2021-09-30] MEDS ORDERED: MIDAZOLAM 2 MG/2 ML (VERSED) VIAL ONE (07:12)
[2021-09-30] MEDS ORDERED: MIDAZOLAM 2 MG/2 ML (VERSED) VIAL IV ONE (07:15)
--- NOTE | 2021-09-30 07:18 | Progress Note-Pre Operative ---
Pre-Operative Progress Note H&P Reviewed The H&P was reviewed, patient examined and no changes noted. Date Seen by Provider: Sep 30, 2021 Time Seen by Provider: 07:18 Date H&P Reviewed: Sep 30, 2021 Time H&P Reviewed: 07:18 Pre-Operative Diagnosis: LT PROXIMAL URETERAL STONE PRINCESS WELLS MD Sep 30, 2021 07:18
[2021-09-30] MEDS ORDERED: fentaNYL INJ 100 MCG/2 ML AMP ONE (08:06)
[2021-09-30] MEDS ORDERED: proPOfol 200 MG/20 ML (DIPRIVAN) VIAL IV ONE (08:06)
[2021-09-30] MEDS ORDERED: LIDOCAINE PF 2% 5 ML (XYLOCAINE) VIAL ONE (08:06)
[2021-09-30] MEDS ORDERED: ONDANSETRON 4 MG/2 ML (SDV) Z0FRAN ONE (08:06)
--- NOTE | 2021-09-30 08:20 | Diagnostic Imaging Report ---
Indication: Lithotripsy, renal stones COMPARISON: 09/11/2021 TECHNIQUE: Single radiograph of the abdomen dated 09/30/2021 FINDINGS: 0.8 cm calcification is identified between the left L4 and L5 transverse processes. This appears new since the prior examination. Additionally, previously noted calcification adjacent to the left L4 transverse process is no longer visualized. Therefore, this is felt to relate to slight progression of previously suggested left ureteral calculus. No additional calcifications are seen overlying the bilateral renal shadows. Phleboliths within the lower pelvis. No acute osseous abnormality with scattered osseous degenerative changes. Nonacute bowel gas pattern. IMPRESSION: 0.8 cm calcification between the left L4 and L5 transverse processes is favored to relate to previously noted left-sided ureterolith which has minimally progressed within the left ureter when compared to the prior examination. Dictated by: Dictated on workstation # [id number]
[2021-09-30] MEDS ORDERED: FUROSEMIDE 40 MG/4 ML INJ (LASIX) ONE (08:25)
[2021-09-30] MEDS ORDERED: KETOROLAC 30 MG/ML VIAL ONE (08:25)
--- NOTE | 2021-09-30 08:26 | Progress Note-Post Operative ---
Post-Operative Progess Note Surgeon (s)/Ventilator Specialist (s) Surgeon PRINCESS WELLS MD Ventilator Specialist: NONE Pre-Operative Diagnosis LT PROXIMAL URETERAL STONE Post-Operative Diagnosis SAME Procedure & Operative Findings Date of Procedure 09/30/21 Procedure Performed/Findings LT ESWL Anesthesia Type GENERAL Estimated Blood Loss Estimated blood loss (mL): NONE Specimens/Packing Specimens Removed NONE Packing: NONE PRINCESS WELLS MD Sep 30, 2021 08:26
--- NOTE | 2021-09-30 08:27 | Discharge Inst-Urology ---
Discharge Inst-Urology Reconcile Patient Problems Problems Reviewed?: Yes Patient Instructions/Follow Up Plan/Assessment/Instructions Please make appointment to been seen in office Friday 10/13, KUB prior to it KUB on way home Post ESWL instructions Increase oral fluids for 48 hours and then as needed. Diet and Activity as tolerated. If questions or concerns contact your physician Or seek help at emergency department. PRINCESS WELLS MD Sep 30, 2021 08:27
[2021-09-30] MEDS ORDERED: SEVOFLURANE (ULTANE) 15 ML INHAL SOLN ONE (08:38)
[2021-09-30] MEDS ORDERED: ONDANSETRON 4 MG/2 ML (SDV) Z0FRAN IVP PRN (09:15)
[2021-09-30] MEDS ORDERED: morphine INJ 10 MG/ML 1ML (SYR OR VIAL) IVP ONE (09:15)
[2021-09-30] MEDS ORDERED: TMSL.4C PO (09:53)
[2021-09-30] MEDS ORDERED: NITR-65 PO (09:53)
[2021-09-30] MEDS ORDERED: KETO10TA PO (09:53)
--- NOTE | 2021-09-30 11:05 | Anesthesia-General Post-Op ---
General Post Op Complications Complications None Follow Up Care/Instructions Patient Instructions None needed. Anesthesia/Patient Condition Patient Condition Patient was seen in PACU, awake and doing well, no complaints, stable vital signs, no apparent adverse anesthesia problems. No complications reported per nursing. SHYLA SEAMAN DO Sep 30, 2021 11:05
--- NOTE | 2021-09-30 11:30 | Diagnostic Imaging Report ---
INDICATION: Status post lithotripsy. COMPARISON: Earlier same day FINDINGS: Single frontal supine radiograph view of the abdomen was obtained. Extraosseous calcification previously described lateral to the L5 vertebral body is no longer identified. No other suspicious extraosseous calcifications or radiopaque foreign bodies are seen. Small bowel loops are nondistended. There is no large collection of free intraperitoneal air. Osseous structures are stable. IMPRESSION: 1. Previously described left-sided 8 mm calculus is no longer visualized. 2. Nonobstructed small bowel gas pattern. Dictated by: Dictated on workstation # [id number]
--- NOTE | 2021-09-30 13:22 | OPERATIVE REPORT ---
DATE OF SERVICE: 09/30/2021 PREOPERATIVE DIAGNOSIS: Left proximal ureteral stone. POSTOPERATIVE DIAGNOSIS: Left proximal ureteral stone. OPERATION PERFORMED: Left ESWL. SURGEON: Kirk Wells MD ANESTHESIA: General. COMPLICATIONS: None. DESCRIPTION OF PROCEDURE: Under satisfactory general anesthesia, the patient in supine position on the ESWL table, the left proximal ureteral stone was localized. Shocks were delivered at a kV of 6. Total of 2500 shocks completely fragmented the stone. The patient received 40 mg of Lasix and 30 mg of Toradol IV at the end of the procedure. She tolerated the procedure and anesthesia well and was sent to recovery room in a stable condition. Job ID: [id number] DocumentID: [id number] Dictated Date: 09/30/2021 08:43:29 Field Research Associate Date: 09/30/2021 13:21:23 Dictated By: KIRK WELLS MD
== END 2021-09-30 11:15 | disposition home or self-care (01) ==
LOC: SDC 06:31
PROVIDERS: ATTEND Urology
DX: N20.1 Calculus of ureter (principal); Z28.310 Unvaccinated for COVID-19
CPT/HCPCS: 74018; 87081

== ENCOUNTER → 2021-10-13 | Outpatient (CLI) | payer MEDICARE, OTHER ==
[~2021-10-13] MED LIST changes: +AZIT250T PO; +KETO10TA PO; +NITR-65 PO
--- NOTE | 2021-10-13 14:10 | Diagnostic Imaging Report ---
Indication: Nephrolithiasis KUB 1:57 PM There is a moderate amount of stool in the right side of the colon. Bowel gas pattern is normal. There are no pathologic masses or calcifications. IMPRESSION: Unremarkable KUB. Dictated by: Dictated on workstation # [id number]
== END ==
LOC: RAD 13:33
PROVIDERS: ATTEND Urology
DX: N20.2 Calculus of kidney with calculus of ureter (principal)
CPT/HCPCS: 74018

== ENCOUNTER → 2022-06-30 | Outpatient (CLI) | payer MEDICARE, OTHER ==
--- NOTE | 2022-06-30 11:54 | Diagnostic Imaging Report ---
INDICATION: Postmenopausal state COMPARISON: None available FINDINGS: AP Spine L1-L4: [BMD (g/cm2): 0.696] [T-Score: -4.2] [Z-Score: -2.8] [BMD Previous: NA] [BMD % Change: NA] LT Hip Neck: [BMD (g/cm2): 0.700] [T-Score: -2.4] [Z-Score: -0.9] LT Hip Total: [BMD (g/cm2):0.774] [T-Score:-1.9] [Z-Score: -0.6] [BMD Previous: NA] [BMD % Change: NA] RT Hip Neck: [BMD (g/cm2):0.688] [T-Score:-2.5] [Z-Score:-1.0] RT Hip Total: [BMD (g/cm2):0.779] [T-score:-1.8] [Z-Score:-0.5] [BMD Previous:NA] [BMD % Change:NA] *Indicates significant change from prior examination based on 95% confidence level. World Health Organization criteria for BMD interpretation classify patients as Normal (T-score at or above -1.0), Osteopenic (T-score between -1.0 and -2.5) or Osteoporotic (T-score at or below -2.5). LIMITATIONS AND MODIFICATION: None. FRACTURE RISK (FRAX SCORE): The ten year probability of (%): Major Osteoporotic Fracture: [22.6] Hip Fracture: [5.8] IMPRESSION: 1. Osteoporosis. 2. Baseline examination. 3. See below National Osteoporosis Foundation guidelines on when to potentially initiate pharmacologic therapy. Based on the National Osteoporosis Foundation Guidelines, pharmacologic treatment should be initiated in any of the following, unless clinical conditions suggest otherwise: * Any patient with prior fragility fracture of the hip or vertebrae. A spine fracture indicates 5X risk for subsequent spine fracture and 2X risk for subsequent hip fracture. * Osteoporosis (T-score <-2.5). * Postmenopausal women and men age 50 and older with low bone mass/osteopenia (T-score between -1.0 and -2.5) by DXA and 10-year major osteoporotic fracture greater than 20% or a 10-year probability of hip fracture greater than 3%. These fracture risks are supplied above in the FRAX score, if applicable. * Clinician judgement and/or patient preferences may indicate treatment for people with 10-year fracture probabilities above or below these levels. Dictated by: Dictated on workstation # [id number]
== END ==
LOC: RAD 11:02
PROVIDERS: ATTEND Nurse Practitioner Family
DX: Z13.820 Encounter for screening for osteoporosis (principal); S32.030A Wedge compression fracture of third lumbar vertebra, initial encounter for closed fracture; X58.XXXA Exposure to other specified factors, initial encounter; M81.0 Age-related osteoporosis without current pathological fracture; Z78.0 Asymptomatic menopausal state
CPT/HCPCS: 77080

== ENCOUNTER 2022-07-29 07:54 | Outpatient (RCR) | payer MEDICARE, OTHER | END 2022-08-02 | disposition home or self-care (01) | PROVIDERS: ATTEND Neurological Surgery | DX: S32.030D Wedge compression fracture of third lumbar vertebra, subsequent encounter for fracture with routine healing (principal); R53.1 Weakness; X58.XXXD Exposure to other specified factors, subsequent encounter ==

== ENCOUNTER → 2022-09-02 | Outpatient (RCR) | payer MEDICARE, OTHER | END | disposition home or self-care (01) | PROVIDERS: ATTEND Neurological Surgery | DX: S32.020D Wedge compression fracture of second lumbar vertebra, subsequent encounter for fracture with routine healing (principal); X58.XXXD Exposure to other specified factors, subsequent encounter ==

== ENCOUNTER → 2022-10-02 | Outpatient (RCR) | payer MEDICARE, OTHER | END | disposition home or self-care (01) | PROVIDERS: ATTEND Neurological Surgery | DX: S32.020D Wedge compression fracture of second lumbar vertebra, subsequent encounter for fracture with routine healing (principal); X58.XXXD Exposure to other specified factors, subsequent encounter ==

== ENCOUNTER 2022-10-30 11:24 | Outpatient (RCR) | payer MEDICARE, OTHER | END 2022-11-02 | disposition home or self-care (01) | PROVIDERS: ATTEND Neurological Surgery | DX: S32.020D Wedge compression fracture of second lumbar vertebra, subsequent encounter for fracture with routine healing (principal); X50.0XXD Overexertion from strenuous movement or load, subsequent encounter ==

== ENCOUNTER 2022-11-25 11:27 | Outpatient (RCR) | payer MEDICARE, OTHER | END 2022-12-03 | disposition home or self-care (01) | PROVIDERS: ATTEND Neurological Surgery | DX: S32.020D Wedge compression fracture of second lumbar vertebra, subsequent encounter for fracture with routine healing (principal); X50.0XXD Overexertion from strenuous movement or load, subsequent encounter ==

== ENCOUNTER 2023-01-22 12:36 | Emergency (ER) | payer OTHER, MEDICARE ==
[~2023-01-22] VITALS: Ht 152.4 cm; Wt 76.3 kg
[2023-01-22] MEDS ORDERED: ACETAMINOPHEN 325 MG TABLET PO ONE (13:00)
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
[2023-01-22 14:23] VITALS: BP 116/57
== END 2023-01-22 14:23 | disposition home or self-care (01) ==
LOC: EDUNIT# 12:36 → ER 12:38
DX: S09.90XA Unspecified injury of head, initial encounter (principal); V49.40XA Driver injured in collision with unspecified motor vehicles in traffic accident, initial encounter; W22.8XXA Striking against or struck by other objects, initial encounter; Y92.481 Parking lot as the place of occurrence of the external cause
CPT/HCPCS: 70450; 72125